=== PATIENT | male | born 1975 | race Caucasian/White ===

== ENCOUNTER 2017-05-19 23:58 | Emergency (ER) | payer SELFPAY ==
[2017-05-20] MEDS ORDERED: Lidocaine 1% with EPINEPHrine 1:100,000 20 ML MDV INJECT ONE (00:08)
[2017-05-20] MEDS ORDERED: Lidocaine 1% with EPINEPHrine 1:100,000 10 ML MDV INJECT ONE (00:10)
[2017-05-20] MEDS ORDERED: Lidocaine 1% 20 ML MDV INJECT ONE (00:13)
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
[2017-05-20] MEDS ORDERED: Bacitracin Oint 1 GM U/D Packet TOP ONE (00:24)
== END 2017-05-20 00:47 | disposition home or self-care (01) ==
LOC: MW.ED 23:58
DX: S01.21XA Laceration without foreign body of nose, initial encounter (principal); W22.8XXA Striking against or struck by other objects, initial encounter
CPT/HCPCS: 12011; 99282